=== PATIENT | female | born 1985 | race Caucasian/White ===

== ENCOUNTER 2022-10-20 19:24 | Emergency (ER) | payer BC, SELFPAY ==
[2022-10-20 19:42] VITALS: BP 132/99; PULSE 93; RESP 18; TEMP 36.9; O2SAT 97; BMI 25.7
--- NOTE | 2022-10-20 20:31 | CRLHL7_ITS ---
For Patients: As a result of the Century Cures Act, medical imaging exams and procedure reports are released immediately into your electronic medical record. You may view this report before your referring provider. If you have questions, please contact your health care provider. Indication: Swelling and pain. Technique: Ultrasound venous duplex upper left extremity. Compression venous exam was performed using lanier-scale, color Doppler, and spectral Doppler imaging. Comparison: None. Findings: The left internal jugular, subclavian, and axillary veins are patent with normal waveforms. The brachial, basilic, and cephalic veins are fully compressible. No soft tissue abnormalities seen. Impression: Normal ultrasound of the left upper extremity veins. Dictated by Dao Sy MD @ 10/20/2022 9:46:40 PM (Electronically Signed)
--- NOTE | 2022-10-20 21:04 | ED_ITS ---
HPI - Fall General Date Seen: 10/20/22 Chief Complaint: Fall/Minor Trauma Stated Complaint: possible blood clot, pt has a history of them Time Seen by Provider: 10/20/22 20:15 Source: patient Mode of arrival: ambulatory Limitations: no limitations History of Present Illness HPI Narrative: 37-year-old female presents here with the complaints of a possible DVT in her left upper extremity, she fell at work, but this was on the 14 of October, since then she noted some swelling in her left upper extremity, and some changes of her skin. She has a history of a DVT in the past which she was anticoagulated became off of this. Wondering if this is occurred again. She has really notice any pain in her arms it feels swollen and tight. There is some redness and some almost warmth feeling of her left upper arm. There is no numbness or tingling, she denies no pain in her shoulder, she is a nonsmoker, does not use control. complaint: fall Place fall occurred: work Loss of consciousness: No Prolonged down time: no Symptoms prior to fall: none Context: tripped/slipped Location of injury - extremities: Left: elbow and forearm Severity: mild Related Data Home Medications Medication Instructions Recorded Confirmed No Known Home Medications 08/02/22 08/02/22 Allergies Allergy/AdvReac Type Severity Reaction Status Date / Time No Known Drug Allergies Allergy Verified 10/20/22 19:46 Review of Systems Status of ROS: Reports: 10 or more systems reviewed and unremarkable except as noted in History and below PFSH PFS Social History Smoking Status: Current every day smoker What tobacco products do you use: cigarettes Do you use any of these nicotine containing products: None Second hand tobacco smoke exposure: No How often do you have a drink containing alcohol: 2-3 times a week How many standard drinks containing alcohol do you have on a typical day: 3 or 4 How often do you have six or more drinks on one occasion: Never AUDIT-C Alcohol total score: 4 Non-prescribed substance use: marijuana (any form) service: No Exam Narrative: Exam Narrative: She is seen in room 5 she is in no apparent distress, examination shows that she is speaking to me normally, her neck is full range of motion, she is able to rotate it and flex it normally, her arm seem symmetrical bilaterally, she has a little bit more what I would describe as Ali see complexion to the skin on the left arm than the right, there is no edema, there is no fullness, her biceps triceps supination pronation flexion extension of her elbow were normal, and appraisal manager strengths are normal bilaterally her radial and brachial pulses are normal cap refill is normal in really normal examination. Left brachial plexus X axillary region is normal also. Chest is good air entry bilaterally heart sounds are normal. Const: Vital Signs, click to edit/add: Vital Signs - 24 hr 10/20/22 19:42 10/20/22 22:07 Temperature 98.4 F Pulse Rate [Left P ulse Oximeter] 93 75 Respiratory Rate 18 16 Blood Pressure [Ri ght Upper Arm] 132/99 H 120/84 Pulse Oximetry 97 98 Oxygen Delivery Me thod Room Air Room Air Documenting provider has reviewed patient's vital signs: yes Course Course Hospital Course: D-dimer is negative, ultrasound report by the tech is also negative. I spoke to the patient if the final report by Radiology is negative we will send her home, this likely is a contusion, and she is reassured by this. Vital Signs Vital signs: Initial Vital Signs Temperature 98.4 F 10/20/22 19:42 Temperature Source Temporal Artery Scan 10/20/22 19:42 Pulse Rate 93 10/20/22 19:42 Pulse Rhythm 10/20/22 19:42 Pulse Strength 3+ Normal 10/20/22 19:42 Respiratory Rate 18 10/20/22 19:42 Blood Pressure 132/99 H 10/20/22 19:42 Blood Pressure Mean 110 10/20/22 19:42 Blood Pressure Position Sitting 10/20/22 19:42 Pulse Oximetry 97 10/20/22 19:42 Oxygen Delivery Method 10/20/22 19:42 Vital Signs Temperature 98.4 F 10/20/22 19:42 Pulse Rate 93 10/20/22 19:42 Respiratory Rate 18 10/20/22 19:42 Blood Pressure 132/99 H 10/20/22 19:42 Pulse Oximetry 97 10/20/22 19:42 Oxygen Delivery Method 10/20/22 19:42 Temperature 98.4 F 10/20/22 19:42 Pulse Rate 75 10/20/22 22:07 Respiratory Rate 16 10/20/22 22:07 Blood Pressure 120/84 10/20/22 22:07 Pulse Oximetry 98 10/20/22 22:07 Oxygen Delivery Method 10/20/22 22:07 MDM - Fall MDM Narrative Medical decision making narrative: I discussed with her as she has a history of a DVT we will do a left upper extremity ultrasound to rule this out, we will do a D-dimer, Medical Records Attestation: I reviewed the patient's medical records. Lab Data Attestation: I reviewed the patient's lab results. Labs: Lab Results 10/20/22 Range/Units 20:45 D-Dimer Quant (PE/DVT) < 0.27 (0.00-0.50) ug/ml Imaging Data u/s upper ext : Radiologist's impression: Patient: WILFRIDO RAI Facility:?[facility] Patient ID:?[id number] Site Patient ID:?[id number]. Site :?[id number] Study:?US Extremity Left UPPER EXT-10/20/2022 9:37:07 PM Ordering Physician:Edelmira Day Final Report: Indication: Swelling and pain. Technique: Ultrasound venous duplex upper left extremity. Compression venous exam was performed using lanier-scale, color Doppler, and spectral Doppler imaging. Comparison: None. Findings: The left internal jugular, subclavian, and axillary veins are patent with normal waveforms. The brachial, basilic, and cephalic veins are fully compressible. No soft tissue abnormalities seen. Impression: Normal ultrasound of the left upper extremity veins. Dictated by Dao Sy MD @ 10/20/2022 9:46:40 PM (Electronic Signature) Discharge Plan Discharge Clinical Impression: Injury of left upper arm, Personal history of DVT (deep vein thrombosis) Patient Disposition: Home, Self-Care Condition: Stable Additional Instructions: Home rest use of ibuprofen/Tylenol, reassurance given, no evidence of a clot DVT. Use of heat/ice Prescriptions: No Action No Known Home Medications Follow Up/Referrals: Provider,Not a Local [Primary Care Provider] - Stand Alone [facility]
[2022-10-20 21:21] LABS: D Dimer Quantitative* < 0.27 ug/ml (0.00-0.50)
[2022-10-20 22:07] VITALS: BP 120/84; PULSE 75; RESP 16; O2SAT 98
== END 2022-10-20 22:45 | disposition home or self-care (01) ==
LOC: ED 21:52
PROVIDERS: Emergency Provider Family Medicine
DX: S49.92XA Unspecified injury of left shoulder and upper arm, initial encounter (principal); W19.XXXA Unspecified fall, initial encounter; Z86.718 Personal history of other venous thrombosis and embolism
CPT/HCPCS: 36415; 85379; 93971; 99283; 99284

== ENCOUNTER 2023-08-26 14:18 | Emergency (ER) | payer BC, SELFPAY ==
[2023-08-26 14:44] VITALS: BP 110/70; PULSE 120; RESP 16; TEMP 36.6; O2SAT 97; BMI 26.6
--- NOTE | 2023-08-26 14:46 | CRLHL7_ITS ---
For Patients: As a result of the Century Cures Act, medical imaging exams and procedure reports are released immediately into your electronic medical record. You may view this report before your referring provider. If you have questions, please contact your health care provider. Indication: Ankle injury Technique: AP, oblique, and lateral views of the right ankle Comparison: None. Findings/impression: Oblique, minimally comminuted fracture of the distal fibular diametaphysis with minimal lateral and posterior displacement of the distal fracture segment. Medial malleolar fracture that is mildly displaced inferiorly. There is mild widening of the tibiofibular joint space (6 millimeters) and median clear space (6 millimeters). No suspicious osseous lesions. Small ankle effusion with soft tissue swelling about the ankle. Dictated by Jagdeep French MD @ 08/26/2023 4:11:34 PM (Electronically Signed)
--- NOTE | 2023-08-26 16:25 | ED.GENADULT ---
HPI - General Adult General Chief complaint: Extremity Pain/Injury, Lower Stated complaint: R ankle injury Time Seen by Provider: 08/26/23 15:39 History of Present Illness HPI narrative: This 38-year-old female comes in with an injury to her right ankle that occurred yesterday. She states that she tripped and fell and since then has been unable to bear weight on her right leg. She does not report any other injury. She has significantly worse swelling of her right ankle today since this injury. Related Data Previous Rx's Medication Instructions Recorded ondansetron HCl 4 mg tablet 4 mg PO Q6H #20 tabs 08/26/23 tramadol 50 mg tablet 50 mg PO Q6H PRN pain #24 tabs 08/26/23 Allergies Allergy/AdvReac Type Severity Reaction Status Date / Time No Known Drug Allergies Allergy Verified 10/20/22 19:46 Review of Systems Status of ROS: Reports: 10 or more systems reviewed and unremarkable except as noted in History and below Narrative: Constitutional: No fevers, no weight gain or loss. Eyes: No discharge. No vision changes. HENT: No congestion, no sore throat, no ear pain. Cardiovascular: No chest pain, no palpitations. Respiratory: No shortness of breath, no wheezes, no cough. Gastrointestinal: No abdominal pain, no vomiting, no diarrhea. Genitourinary: No dysuria, no hematuria. Musculoskeletal: Right ankle injury as described above. Skin: No rashes, no pruritis. Neurological: No dizziness, weakness, sensory change, speech change. Endo/Heme/Allergies: No bruising or bleeding. No polydipsia. Pysch: no suicidality, no anxiety, no insomnia. All other systems reviewed and are negative. PFSH PFS Social History Smoking Status: Current every day smoker What tobacco products do you use: cigarettes Do you use any of these nicotine containing products: None Second hand tobacco smoke exposure: No How often do you have a drink containing alcohol: 2-3 times a week How many standard drinks containing alcohol do you have on a typical day: 3 or 4 How often do you have six or more drinks on one occasion: Never AUDIT-C Alcohol total score: 4 Non-prescribed substance use: marijuana (any form) service: No Exam Narrative: Exam Narrative: Constitutional: Well-developed, well-nourished, no acute distress. HEENT: Normocephalic, atraumatic. Neck: Normal range of motion. Nontender. Supple. Heart: Regular. No murmurs. Normal rate. Intact distal pulses. Lungs: Clear to auscultation. No chest discomfort. No wheezes, rhonchi, or rales. Abdomen: Normal bowel sounds. Nontender. No rebound tenderness. Genitalia: Deferred. Back: No midline tenderness. Normal range of motion. Extremities: Right ankle has significant swelling with tenderness on both the lateral and medial malleoli. Skin: Intact. No rash. Warm. No erythema or pallor. Neurologic: No altered sensation. No weakness. Alert and oriented. Psychiatric: No suicidality. No anxiety or depression. No insomnia. Nursing notes and vitals signs are reviewed. Const: Vital Signs, click to edit/add: Vital Signs - 24 hr 08/26/23 14:44 Temperature 97.9 F Pulse Rate [Pulse Oximeter] 120 H Respiratory Rate 16 Blood Pressure [Ri ght Upper Arm] 110/70 Pulse Oximetry 97 Oxygen Delivery Me thod Room Air Course Vital Signs Vital signs: Initial Vital Signs Temperature 97.9 F 08/26/23 14:44 Temperature Source Temporal Artery Scan 08/26/23 14:44 Pulse Rate 120 H 08/26/23 14:44 Pulse Rhythm Regular 08/26/23 14:44 Respiratory Rate 16 08/26/23 14:44 Blood Pressure 110/70 08/26/23 14:44 Blood Pressure Mean 83 08/26/23 14:44 Pulse Oximetry 97 08/26/23 14:44 Oxygen Delivery Method Room Air 08/26/23 14:44 Vital Signs Temperature 97.9 F 08/26/23 14:44 Pulse Rate 120 H 08/26/23 14:44 Respiratory Rate 16 08/26/23 14:44 Blood Pressure 110/70 08/26/23 14:44 Pulse Oximetry 97 08/26/23 14:44 Oxygen Delivery Method Room Air 08/26/23 14:44 Temperature 97.9 F 08/26/23 14:44 Pulse Rate 120 H 08/26/23 14:44 Respiratory Rate 16 08/26/23 14:44 Blood Pressure 110/70 08/26/23 14:44 Pulse Oximetry 97 08/26/23 14:44 Oxygen Delivery Method Room Air 08/26/23 14:44 Medical Decision Making MDM Narrative Medical decision making narrative: This patient comes in for evaluation of an ankle injury. X-ray images show evidence of fracture both the medial and lateral components typical of a bimalleolar ankle fracture that is unstable. The position of her ankle mortise is relatively good. I did speak with orthopedic physician hair or beauty salon assistant on-call who will make arrangements for follow-up appointment and surgical repair of this injury. The patient is placed in a Marck Richardsno style splint using Ortho Glass material. She received a prescription for tramadol and Zofran. Discharge Plan Discharge Clinical Impression: Ankle fracture, bimalleolar, closed Patient Disposition: Home w/ Parent or Adult Condition: Stable Additional Instructions: Wear splint and use crutches with no weight-bearing on the right leg. Follow-up with orthopedic clinic as scheduled. He will receive a phone call tomorrow in this regard. Use medication as needed and directed for pain. Prescriptions: New tramadol 50 mg tablet 50 mg PO Q6H PRN (Reason: pain) Qty: 24 0RF ondansetron HCl 4 mg tablet 4 mg PO Q6H Qty: 20 0RF Follow Up/Referrals: Provider,Not a Local [Primary Care Provider] - Stand Alone Forms: [employer] Info Instructions
== END 2023-08-26 17:19 | disposition home or self-care (01) ==
PROVIDERS: Emergency Provider Emergency Medicine Emergency Medical Services
DX: S82.841A Displaced bimalleolar fracture of right lower leg, initial encounter for closed fracture (principal); W01.0XXA Fall on same level from slipping, tripping and stumbling without subsequent striking against object, initial encounter
CPT/HCPCS: 29515; 73610; 99283; 99284

== ENCOUNTER 2023-09-02 06:50 | Day surgery (SDC) | payer BC, SELFPAY ==
[2023-09-02] VITALS (18 sets, daily range): BP systolic 96–114; BP diastolic 58–85; PULSE 62–88; RESP 16; TEMP 36.2–37.2; O2SAT 96–100; BMI 26.6
[2023-09-02] MEDS: LACTATED RINGERS 1000 ML 1,000 ML 100 ML IV ×2 (07:25→10:04)
[2023-09-02] MEDS: SODIUM CHLORIDE 0.9 % (FLUSH) 10 ML SYRINGE IVF (07:25)
--- NOTE | 2023-09-02 07:31 | W.PM.H&PU ---
History & Physical Update History & Physical Update H&P Reviewed and patient assessed: No changes noted
[2023-09-02 07:32] LABS: Ur HCG Qualitative* Negative (Negative)
[2023-09-02] MEDS: MIDAZOLAM HCL 1 MG/ML inj IVP (07:42)
[2023-09-02] MEDS: fentaNYL 100 MCG/2 ML inj IVP (07:42)
--- NOTE | 2023-09-02 07:55 | SUR.PREOP ---
TIME?OUT:?0742 PT/RN/MDA?VERIFICATION?OF?SURGICAL?SITE,?PROCEDURE,?AND?CONSENT OBTAINED?PRIOR?TO?INVASIVE?PROCEDURE.
--- NOTE | 2023-09-02 08:15 | CRLHL7_ITS ---
For Patients: As a result of the Century Cures Act, medical imaging exams and procedure reports are released immediately into your electronic medical record. You may view this report before your referring provider. If you have questions, please contact your health care provider. Indication: RT ANKLE ORIF Technique: Three fluoroscopic images of the right ankle. Fluoroscopic time 42.4 seconds. IMPRESSION: Fluoroscopic guidance for open reduction internal fixation of fractures involving the base of the medial malleolus and distal fibula. Dictated by Kwasi Vences MD @ 09/02/2023 11:07:03 AM (Electronically Signed)
[2023-09-02] MEDS: CEFAZOLIN 2 GM INJ IVP (08:37)
--- NOTE | 2023-09-02 08:37 | PM.ORPRC ---
Procedure Note Date of procedure: 09/02/23 Procedure: PREOPERATIVE DIAGNOSES: 1. Right bimalleolar ankle fracture, closed, displaced POSTOPERATIVE DIAGNOSES: 1. Right bimalleolar ankle fracture, closed, displaced NAME OF OPERATION: 1. Right bimalleolar ankle fracture open reduction internal fixation SURGEON: Jus Gonzalez MD CRUSHING FOREMAN: Burak CORNEJO; An registered nurse first assistant was critical for this case to aide in patient positioning, leg manipulation, tissue retraction, closure, and splinting. ANESTHESIA: Spinal plus adductor canal block. EBL: 5 mL IMPLANTS: Arthrex 3.0 mm interfragmentary lag screw, a distal fibular 1/3 tubular plate with 4.0 mm cancellous, 2.7 distal locking and 3.5mm proximal nonlocking screws for lateral malleolus fixation; two cannulated 4.0 mm partially threaded screws for medial malleolar fixation. TOURNIQUET: 58 minutes at 250 mmHg INDICATIONS: The patient is a pleasant 38-year-old female who sustained a right ankle injury in the recent past with difficulty bearing weight. Workup included x-rays, which revealed an unstable trimalleolar ankle fracture. Given the unstable nature of this injury, surgical intervention consisting of bimalleolar ankle open reduction internal fixation was recommended to improve alignment and stablize the ankle. The posterior malleolus fracture involved less than 20% of the joint surface and did not require surgical stabilization. Prior to surgery, the risks and benefits of the procedure were discussed with the patient,, all questions were answered, and informed consent was obtained. FINDINGS: Closed, displaced trimalleolar ankle fracture. After open reduction fixation there is anatomic alignment of the medial and lateral malleolus fractures and near anatomic alignment of the posterior malleolus fracture. The syndesmosis was stable. PROCEDURE: Patient seen preoperatively and operative site was marked. A regional nerve block was performed by anesthesia staff. The patient was then brought to the operating room and placed supine on the operating table. Induction of anesthesia was undertaken. The operative extremity was prepped and draped in the usual sterile fashion. 2 g IV Ancef was administered for preoperatively for prophylaxis. A surgical time-out was performed confirming patient identity, surgical site, and surgical procedure. The operative extremity was elevated and exsanguinated, and the tourniquet inflated to 250 mmHg. A longitudinal incision was made along the posterior border of the distal fibula. Incision was carried through the skin and subcutaneous tissues, while protecting any crossing neurologic structures. The fracture was encountered, and cleared of interposed periosteum and fracture hematoma. Fracture site was then thoroughly irrigated with normal saline. The fracture was reduced and temporarily held with reduction clamps. A 3.0 mm interfragmentary lag screw was drilled perpendicular across the fracture. Following compression with the screw, a 1/3 tubular plate was contoured to fit along the lateral border of the distal fibula. This was temporally fixed proximally with a BB tack. His then fixed distally with a 4 mm cancellous screw and 3.0 mm locking screws. The plate was then secured proximally with 33.5 mm nonlocking cortical screws. Following C-arm confirmation of appropriate plate position, and screw length, attention was turned to the fixation of the medial malleolus fracture. A longitudinal incision was made overlying the medial malleolar fracture. Blunt dissection was utilized to dissect through the subcutaneous tissues to allow us to protect the crossing neurovascular structures. The fracture was identified and cleared of interposed periosteum and fracture hematoma. The fracture was reduced and held with a pointed reduction clamp. Two guide pins for the 4-0 cannulated screws were then drilled in a retrograde fashion across the fracture. Fluoroscopic imaging confirmed anatomic reduction of the fracture and good placement of the pins. The pins were then overdrilled, and partially-threaded 4.0 mm cannulated screws were secured into position over the pins. Guide pins were removed . Fluoroscopic imaging confirmed anatomic reduction with good compression and good placement of the screws. After confirming appropriate reduction and positioning of the plate and screws using fluoroscopic imaging, an external rotation stress was placed on the ankle to test for syndesmosis stability. [place] stress imaging revealed a symmetric mortise with no widening of the syndesmosis. At this stage, the wounds were thoroughly irrigated with normal saline. Laterally, deep fascia was closed over the plate using 0 Vicryl [id number] interrupted sutures. The tourniquet was then released . Total tourniquet time was 50 minutes. Hemostasis was achieved electrocautery. Skin incisions were then closed with 2-0 Vicryl inverted after subcutaneous stitches followed by running 2-0 Stratafix subcuticular stitch and Exofin glue. Sterile dressings were applied and a well-padded short-leg splint was applied. The patient was awoken from anesthesia and transferred to the PACU in stable condition. PLAN: 1. Ice and elevation of operative extremity for pain and swelling. 2. Tylenol and oxycodone as needed for pain. 3. Toe-touch weight-bearing operative extremity. 4. Keep splint clean and dry. 5. Follow up in Orthopedic Clinic in 10-14 days for wound check and splint removal.
--- NOTE | 2023-09-02 08:52 | W.PM.NB ---
Nerve Block Nerve Block Time Seen by Provider: 07:49 Date Seen: 09/02/23 Type of block requested by surgeon for post-operative analgesia: popliteal Side: right Time out performed: Yes Verification of patient name: Yes Verification of date of : Yes Site marking: site marked Name of person performing procedure: Vaughn Continuous monitoring Was continuous monitoring of O2 sat, B/P, cardiac catheterization technician, recorded every 15 minutes?: Yes Procedure Checklist: sterile prep, needles and gloves Ultrasound guided. Images saved: Yes Medications given in 5ml increments after negative aspiration: Ropivicaine %: 0.5 mL: 20 Needle gauge: 22 Patient tolerated procedure well: Yes Additional comments: Needle noted adjacent to nerve Block Charges Block Charge (with Pro Fee): Sciatic Nerve Use of Ultrasound Machine for Block: Yes- US Guidance/pain block
--- NOTE | 2023-09-02 08:53 | W.PM.NB ---
Nerve Block Nerve Block Time Seen by Provider: 07:49 Date Seen: 09/02/23 Type of block requested by surgeon for post-operative analgesia: adductor canal Side: right Time out performed: Yes Verification of patient name: Yes Verification of date of : Yes Site marking: site marked Name of person performing procedure: Vaughn Continuous monitoring Was continuous monitoring of O2 sat, B/P, java security architect, recorded every 15 minutes?: Yes Procedure Checklist: sterile prep, needles and gloves Ultrasound guided. Images saved: Yes Medications given in 5ml increments after negative aspiration: Ropivicaine %: 0.5 mL: 20 Needle gauge: 20 Patient tolerated procedure well: Yes Additional comments: Needle noted adjacent to nerve Block Charges Block Charge (with Pro Fee): Femoral Nerve Use of Ultrasound Machine for Block: Yes- US Guidance/pain block
--- NOTE | 2023-09-02 08:53 | W.ANESCHARGE ---
Anesthesia Charges Start Date/Time Anesthesia Start Date: 09/02/23 Anesthesia Start Time: 08:27 Stop Date/Time Anesthesia Stop Date: 09/02/23 Anesthesia Stop Time: 10:39
--- NOTE | 2023-09-02 10:26 | SUR.OPER ---
PATIENT QUESTIONS ANSWERED SATISFACTORILY PREOPERATIVELY.? PATIENT BROUGHT TO OR #3 PER CART.? Patient positioned supine on OR #3 bed.? The perioperative?team supported arms bilaterally on arm boards.? Final approval of positioning by surgeon.?
--- NOTE | 2023-09-02 10:39 | W.ANESCHARGE ---
Anesthesia Charges Start Date/Time Anesthesia Start Date: 09/02/23 Anesthesia Start Time: 08:27 Stop Date/Time Anesthesia Stop Date: 09/02/23 Anesthesia Stop Time: 10:39
== END 2023-09-02 12:25 | disposition home or self-care (01) ==
PROVIDERS: Anesthesiology; Visit Provider Orthopaedic Surgery
PROC: (CPT 27814; principal; 2023-09-02 08:15)
DX: S82.841A Displaced bimalleolar fracture of right lower leg, initial encounter for closed fracture (principal); G89.18 Other acute postprocedural pain
CPT/HCPCS: 27814; 01480; 64445; 64447; 73600; 73610; 76000; 76942; 81025; A4580; C1713; J0690; J1170; J2250; J2704; J2795; J3010; J7120

== ENCOUNTER 2023-11-27 14:45 | Outpatient (RCR) | payer BC, SELFPAY ==
--- NOTE | 2023-11-10 16:43 | PT.OPDNX ---
[facility] Daily [facility] Daily Note Start: 09/16/23 12:45 Freq: Status: Active Protocol: Document 11/10/23 13:03 DENIS (Rec: 11/10/23 16:12 DENIS [id number]) E-signed By Liseth Brown DPT PT [facility] Daily Progress Note Visit Information Note Type Daily Note,Recert/Progress Note Visit Number [phone] Insurance Authorized Visits - Physician Authorized Visits - Insurance Information Recert Due Date 01/09/24 Insurance Name Medicaid,[employer] Medical Diagnosis right bimalleolar ankle fracture ORIF 09/02/23 Treating Diagnosis right ankle pain, swelling, difficulty walking and with transfers, decreased ankle ROM , decreased ankle strength Referring MD Jerrica Subjective Subjective Patient reports ongoing use of walking boot until yesterday when she tried to put on a shoe for the first time. It was uncomfortable so she had to find a pair of shoes that would work/feel good for transition out of the boot. She continues to use crutches. Reports using 2 crutches with the boot when going out, one crutch at home. She comes to PT today using 2 crutches, wearing shoes but she is not WB on R foot - swing thru gait . She is using tylenol as needed. Has not been icing. Pain has been tolerable with some increased soreness with increased activity and WB. Reports she is still using the kneeling scooter for longer distances/outings and at work. She reports being in the boot and using crutches since R ankle ORIF surgery Sep 02. She had follow up with Dr Gonzalez 10/20, xrays looked good so she was given the ok to transition to shoe in 2 weeks (end of Oct). Next MD appt 10/26. Patient is doing her HEP - ROM, toe curls, stretching with a belt. Last PT appt was 10/26 - she returns to PT today as she is wanting guidance for progression of WB and back into a shoe. Precautions Weight Bearing Status Toe Touch Weight Bearing Home Exercise Home Exercise Comments AP, circles, alphabet seated toe taps, heel raises bridging standing WS, walk in place in shoe using countertop support sidestepping R/L, fwd/retro walking along countertop in shoe HO issued for HEP. Objective Patient Instructed in Risks/Benefits Yes Therapeutic Exercise Therapeutic Exercise Minutes (minutes) 20 Therapeutic Exercise: To Restore Review of HEP Functional Status supine R ankle ROM, stretching , contract/relax with stretching DF/PF, joint mobs with ROM to improve ranges, AP , circles bridging seated toe taps, heel raises Gait & Stair Training Gait Training/Stairs Minutes (minutes) 24 Gait & Stair Training Comments standing WS R/L, walk in place with hand support on elevated table - performed and repeated sidestepping R/L, fwd/retro walking along elevated table - performed and repeated Amb with one crutch/two crutches with WBAT on R LE wearing shoe. Practice not leaning onto single crutch, practice WB on R LE with 1 and 2 crutch amb. Treatment Minutes Timed Code Treatment Minutes 44 Total Treatment Time 44 Billing Units Gait Training/Stairs Units 2 Therapeutic Exercise Units 1 Assessment/Impression Assessment/Impression Patient is s/p R ankle ORIF . Patient returns to PT after 2 week gap since her last session. Reports she is working on her HEP, ROM, stretching into DF using a belt. States she continues to use 1-2 crutches for amb even with the walking boot and has been using kneeling scooter for longer distances and at work. She reports putting a shoe on for the first time yesterday, she is wearing a shoe to PT today. Patient comes to PT wearing a shoe and using crutches with swing thru gait pattern. States she is leary of putting wt on her R foot, unsure about progressing back into shoes. R ankle ROM remains tight, limited, stiff. Patient guarded with motion of R ankle and WB activities. Support and encouragement provided. Performed supine R ankle ROM exercises, stretching, joint mobs, contract/relax all to improve ranges, loosen up R ankle. Some soreness, tightness, stiffness but tolerated well. Encouraged patient to work into bigger ranges of motion with her HEP, bigger stretches to improve ROM. Practiced standing WB exercises using elevated table for support as needed. Practiced standing weight shifts, walk in place, sidestepping R/L, fwd/retro walking, amb in shoe with one/ two crutches with WBAT on R LE . Reviewed with patient goals of stretching, improving ROM, improving WB on R LE, progressing to full WB R LE without crutches and improving gait. Recommended patient practice her HEP and get additional PT visits scheduled for ongoing progress toward her PT goals. Patient expressed understanding and will schedule additional PT and work on her HEP. She has follow up with 11/23. Recheck in PT next week. Continue with PT POC. PT goals updated based on patient current status with goals to wean out of walking boot, improve R ankle ROM, improve WB R LE, improve gait, and return to PLF with daily/work activities. Plan of Care Physical Therapy Goals 1. Decrease/maintain R ankle/ foot pain at less than/equal to 4/10 with daily/work activities and with the progression of PT activities over the next 6-8 weeks. 2. Improve R ankle ROM to over the next 6-8 weeks, including DF 10 degrees, for return to normal gait mechanics, reciprocal stair negotiation, and PLF with daily/work activities. 3. Improve R ankle/LE strength over the next 10-12 weeks for progression of WB on R LE, weaning out of CAM boot and back into shoes, return to normal gait without an AD, and for return to PLF with daily/work activities without flare up of pain. 4. Improve R ankle/LE balance /proprioception over the next 10-12 weeks for return to PLF with daily/work activities, normal gait without an AD and without flare up of pain. 5. Patient will be I with HEP within 12 weeks for progression toward above goals, ongoing self management of pain/sx, ongoing self improvements in ROM/strength/ WB/balance/proprioception/gait , and for return to PLF with daily/work activities without flare up of pain. Daily Plan of Care Continue per POC Recertification Information Recertification Start Date 11/10/23 Recertification Due Date 01/09/24 Reasons to Continue Skilled Therapy see above note Rehabilitation Potential good Continued Plan of Care and Interventions 1x/week Provider Signature Shows Agreement With POC & Medical Necessity Physician Comment/Change Comment or Changes Physician NPI Number #
== END 2024-02-12 12:23 | disposition home or self-care (01) ==
PROVIDERS: Visit Provider Physician Assistant Surgical
DX: Z98.890 Other specified postprocedural states (principal); Z51.89 Encounter for other specified aftercare
CPT/HCPCS: 97110; 97116; 97140; 97161

== ENCOUNTER 2024-02-01 09:20 | Outpatient (CLI) | payer BC, SELFPAY | END 2024-02-01 09:21 | disposition home or self-care (01) | LOC: NFLDREF 02-22 16:28 | PROVIDERS: PCP Physician Assistant; Visit Provider Physician Assistant | DX: R30.0 Dysuria (principal); R35.0 Frequency of micturition; B96.20 Unspecified Escherichia coli [E. coli] as the cause of diseases classified elsewhere | CPT/HCPCS: 87086; 87186 ==

== ENCOUNTER 2024-09-20 11:35 | Outpatient (CLI) | payer OTHER, SELFPAY | END 2024-09-20 11:36 | disposition home or self-care (01) | LOC: NFLDREF 09-26 04:14 | PROVIDERS: Visit Provider Physician Assistant | DX: N30.00 Acute cystitis without hematuria (principal) | CPT/HCPCS: 87086; 87186 ==